=== PATIENT | female | born 1970 | race Hispanic/Latino ===

== ENCOUNTER 2017-10-24 21:57 | Emergency (ER) | payer OTHER, MEDICAID ==
[2017-10-24] MEDS ORDERED: Naproxen 500 MG TAB PO STA (22:34)
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
[2017-10-24 23:00] VITALS: BP 117/86; PULSE 82; RESP 18; TEMP 98; O2SAT 98; BMI 30.9
--- NOTE | 2017-10-25 11:35 | RAD ---
PROCEDURE: Cervical Spine Radiographs. HISTORY: Pain. COMPARISON: None. FINDINGS: BONES: Alignment maintained. Straightening of the normal lordosis. No fracture. Dens Intact. DISC SPACES: Normal. SOFT TISSUES: Normal. No prevertebral soft tissue swelling. OTHER FINDINGS: None. IMPRESSION: Straightening of the normal lordosis may be related to positioning/ spasm. No acute fracture.
--- NOTE | 2017-10-25 11:36 | RAD ---
PROCEDURE: Radiographs of the Right Shoulder HISTORY: pain COMPARISON: No prior. FINDINGS: BONES: Normal. No fracture. JOINTS: Normal. Glenohumeral and acromioclavicular joints preserved. No osteoarthritis. SOFT TISSUES: Normal. OTHER FINDINGS: None. IMPRESSION: Normal radiographs of the right shoulder.
== END 2017-10-25 00:01 | disposition home or self-care (01) ==
LOC: H.ER 21:57
DX: S16.1XXA Strain of muscle, fascia and tendon at neck level, initial encounter (principal); M25.511 Pain in right shoulder; V43.52XA Car driver injured in collision with other type car in traffic accident, initial encounter; Y92.410 Unspecified street and highway as the place of occurrence of the external cause